=== PATIENT | male | born 1995 | race Caucasian/White ===

== ENCOUNTER 2021-07-19 23:46 | Emergency (ER) | payer MEDICAID, OTHER ==
[~2021-07-19] VITALS: Ht 177.8 cm; Wt 81.6 kg
[2021-07-19 23:49] VITALS: BP_SYST 128
--- NOTE | 2021-07-19 23:50 | NUR ---
Patient to ER bed holly to gown for evaluation. Side rails up.
--- NOTE | 2021-07-19 23:51 | NUR ---
Came in ER per oleg brought by [facility] paramedics from home this 25 year old male, airway-patent, able to talk, breathing spontaneously at room air, not in distress noted , [id number]%, skin warm to touch, BP-127/69mmhg, IV cannula g 20 at left IJ, patent, pupil bilateral dilated size-6.With chief complaints of Drug overdose, family found unresponsive as per the paramedics, query he took Fentanyl, 2mg of Narcan IM given by paramedics prior to ER. No known medical/ mo surgical history, history of substance abuse .
[2021-07-20] MEDS ORDERED: NACL 0.9% 1,000 ML IV ONE
[2021-07-20] MEDS ORDERED: NALOXONE HCL 2 MG/2 ML SYR (NARCAN) IVP ONE
--- NOTE | 2021-07-20 00:02 | NUR ---
Glucose-128, Dr. Weaver
[2021-07-20] MEDS ORDERED: NALOXONE HCL 2 MG/2 ML SYR ONE (00:10)
--- NOTE | 2021-07-20 00:32 | NUR ---
Called Poison Control at [phone] and spoke with Ms Howard. Per recommendations: to monitor the patient within 4hours after giving the Narcan. Dr. Weaver notified. Will continue to monitor patient.
--- NOTE | 2021-07-20 00:35 | NUR ---
# 16 FR In and Out catheter with use of sterile technique. Immediate return of 300 ml dark yellow urine noted. Urine sample collected and sent to lab. Pt tolerated procedure well.
[2021-07-20 00:49] LABS: BILIRUBIN,URINE 1+ (NEGATIVE); CLARITY/URINE CLEAR (CLEAR); COLOR,URINE YELLOW (YELLOW); GLUCOSE,URINE NEGATIVE (NEGATIVE); KETONES,URINE NEGATIVE (NEGATIVE); LEUKOCYTE ESTERASE ,URINE NEGATIVE (NEGATIVE); NITRITE, URINE NEGATIVE (NEGATIVE); PROTEIN URINE TRACE (NEGATIVE); UROBILINOGEN,URINE 0.2 (0.2-1.0)
[2021-07-20 00:52] LABS: BLOOD, URINE TRACE (NEGATIVE)
[2021-07-20 01:04] LABS: BARBITURATE, URINE NEGATIVE (NEG <=200); BENZODIAZEPINE, URINE POSITIVE (NEG <=150); CANNABINOID, URINE POSITIVE (NEG <=50); COCAINE, URINE NEGATIVE (NEG <=150); METHAMPHETAMINES SCREEN,URINE POSITIVE (NEG <=500); OPIATE, URINE NEGATIVE (NEG <=100); PHENCYCLIDINE SCREEN,URINE POSITIVE (NEG <=25); UR TRICYCLIC ANTIDEPRESSANTS NEGATIVE (NEG <=300); URINE AMPHETAMINE POSITIVE (NEG <=500); URINE METHADONE NEGATIVE (NEG <=200); URINE OXYCODONE SCREEN NEGATIVE (NEG <=100); URINE PROPOXYPHENE SCREEN NEGATIVE (NEG <=300)
--- NOTE | 2021-07-20 01:15 | NUR ---
Dr. Weaver at bedside triend to insert IV guided ultrasound
[2021-07-20 01:18] LABS: BACTERIA,URINE FEW /HPF (None Seen); WBC,URINE 0-3 /HPF (0-3)
--- NOTE | 2021-07-20 01:30 | NUR ---
# 20 gauge angiocath placed to left ac. Use of asceptic technique. Opsite placed over site. Blood return noted. Flushed with 10 cc of normal saline. No evidence of infiltration noted. Patient tolerated well.
--- NOTE | 2021-07-20 01:30 | NUR ---
# 20 gauge angiocath placed with ultrasound to left ac. Use of asceptic technique. Opsite placed over site. Blood return noted. Flushed with 10 cc of normal saline. No evidence of infiltration noted. Patient tolerated well.
[2021-07-20 01:36] LABS: ANION GAP 6 (5-15); CALCIUM 8.5 mg/dL (8.4-11.0); CHLORIDE 103 mmol/L (98-107); CREATININE 1.09 mg/dL (0.55-1.30); GFR AFRICAN AMERICAN 105 mL/min (>90); GLUCOSE 98 mg/dL (70-99); POTASSIUM 3.7 mmol/L (3.5-5.1); SODIUM SERUM 139 mmol/L (136-145); UREA NITROGEN, BLOOD 17 mg/dL (8-21)
[2021-07-20 01:39] LABS: BASOPHILS % (AUTO) 0.2 % (0.0-2.0); EOSINOPHILS # (AUTO) 0.1 K/uL (0.0-0.4); EOSINOPHILS % (AUTO) 0.5 % (0.0-4.0); HEMATOCRIT 38.4 % (36-54); HEMOGLOBIN 13.2 g/dL (14.0-18.0); LYMPHOCYTES # (AUTO) 0.8 K/uL (1.0-5.5); LYMPHOCYTES % (AUTO) 7.6 % (20.5-51.5); MEAN CORPUSCULAR HEMOGLOBIN 30 pg (27-31); MEAN CORPUSCULAR HGB CONC 34 % (32-36); MEAN CORPUSCULAR VOLUME 87 fL (79.0-98.0); MONOCYTES # (AUTO) 0.7 K/uL (0.0-1.0); MONOCYTES % (AUTO) 6.7 % (1.7-9.3); NEUTROPHILS # (AUTO) 8.4 K/uL (1.8-7.7); PLATELET COUNT (AUTO) 208 K/uL (130-430); RED BLOOD CELL COUNT(AUTO) 4.41 MIL/uL (4.2-6.2); RED CELL DISTRIBUTION WIDTH 16.5 % (9.0-15.0); WHITE BLOOD COUNT (AUTO) 9.9 K/uL (4.8-10.8)
[2021-07-20 01:40] LABS: PROTHROMBIN TIME 10.9 SECS (9.5-12.5)
[2021-07-20 01:42] LABS: ALANINE AMINOTRANSFERASE 116 U/L (12-78); ALBUMIN 3.7 g/dL (3.4-4.8); ASPARTATE AMINOTRANSFERASE 63 U/L (10-37); TOTAL BILIRUBIN 0.7 mg/dL (0.0-1.0)
[2021-07-20 01:45] LABS: ACETAMINOPHEN < 1 ug/mL (1-30); ALCOHOL, BLOOD < 3 mg/dL (<10)
--- NOTE | 2021-07-20 01:51 | NUR ---
Patient transported to radiology via gurney in stable condition, accompanied by RN and turbo electric operator.
--- NOTE | 2021-07-20 02:15 | NUR ---
Returned from radiology, back to [facility]
--- NOTE | 2021-07-20 03:34 | NUR ---
Chest Xray done at [facility]
--- NOTE | 2021-07-20 04:15 | NUR ---
Received phone call from Poison control to update them on patient. Recommendations from this point forward include airway management and 4-6 hours of observation from last narcan dose. notified.
--- NOTE | 2021-07-20 04:31 | NUR ---
Still sleeping, vital signs stable, not in distress noted.
--- NOTE | 2021-07-20 06:05 | NUR ---
Patient transported to radiology via gurney in stable condition, accompanied by RN and tech.
--- NOTE | 2021-07-20 06:23 | NUR ---
Returned from radiology, back to [facility].
--- NOTE | 2021-07-20 07:15 | NUR ---
Endorsed to day shift KRIS Quezada in stable condition for continuity of care
--- NOTE | 2021-07-20 07:38 | NUR ---
Pt resting in bed, no signs of distress noted. Respirations equal and symmetrical, moving all extremities.
[2021-07-20] MEDS ORDERED: AZITHROMYCIN 250 MG TABLET PO ONE (09:30)
--- NOTE | 2021-07-20 10:00 | NUR ---
SL. discontinued pt. given discharge instructions and prescription, called Alcira per his request for a ride home, called her and she will be coming from [facility]
--- NOTE | 2021-07-20 10:36 | NUR ---
Alcira called unable to come d/t car issues, called his mother Maribeth per request, she refuses to come, called [facility] mental health social worker
--- NOTE | 2021-07-20 10:37 | NUR ---
Alcira [phone] Teresa [phone]
[2021-07-20] MEDS ORDERED: ONDANSETRON 4 MG ODT TAB PO ONE (10:45)
--- NOTE | 2021-07-20 11:03 | NUR ---
Pt states his mother and girlfriend are refusing to pick up worker him because they want him to go back to rehab. Pt is currently A&Ox4 and states he cannot walk home and is requesting a taxi be called to take him to [address] [place] [address]. Pt states this is his current address.
--- NOTE | 2021-07-20 11:05 | NUR ---
Taxi voucher given and taxi called.
--- NOTE | 2021-07-20 12:30 | NUR ---
Pt resting in bed. No n/v or signs of distress noted.
--- NOTE | 2021-07-20 13:52 | NUR ---
Pt awake and asking for a blanket.
--- NOTE | 2021-07-20 14:15 | NUR ---
Pt given sandwhich and apple juice.
--- NOTE | 2021-07-20 15:00 | NUR ---
Patient given written and verbal discharge instructions and verbalizes understanding. ER MD discussed with patient the results and treatment provided. Patient in stable condition. ID arm band removed. IV catheter removed intact and dressing applied, no active bleeding. Rx of Zithromax given. Patient educated on pain management and to follow up with PMD. Pain Scale 0. Opportunity for questions provided and answered. Medication side effect fact sheet provided.
[2021-07-20 17:33] VITALS: BP_SYST 129
== END 2021-07-20 15:00 | disposition home or self-care (01) ==
LOC: SED 23:46
DX: T40.411A Poisoning by fentanyl or fentanyl analogs, accidental (unintentional), initial encounter (principal); J18.9 Pneumonia, unspecified organism; R51.9 Headache, unspecified; Z79.899 Other long term (current) drug therapy; Y92.89 Other specified places as the place of occurrence of the external cause
CPT/HCPCS: 36415; 70450; 71045 ×2; 71250; 72125; 76376; 80053; 80307; 81000; 82962; 84484; 85025; 85610; 85730; 93005; 96361; 96374; 99291; G0480; G0481; G0482; J2310; J7030; Q0144; Q0162